=== PATIENT | female | born 1930 | race Caucasian/White ===

== ENCOUNTER 2016-05-15 02:14 | Inpatient (IN) | payer MEDICARE, OTHER ==
[2016-05-12 12:13] LABS: BASOPHILS 0.3 %; BASOPHILS ABSOLUTE 0.02 10/3/uL (0.0-0.16); EOSINOPHILS 3.5 %; EOSINOPHILS ABSOLUTE 0.22 10/3/uL (0.0-0.53); IMMATURE GRANULOCYTES 0.2 %; IMMATURE GRANULOCYTES ABSOLUTE 0.01 10/3/uL (0.0-0.11); LYMPHOCYTES 28.2 %; LYMPHOCYTES ABSOLUTE 1.75 10/3/uL (0.67-4.30); MEAN CORPUS HGB CONC 28.7 g/dL (32.0-36.0); MEAN CORPUSCULAR HEMOGLOB 27.1 pg (26.0-34.0); MEAN CORPUSCULAR VOLUME 94.6 fL (80-100); MEAN PLATELET VOLUME 11.2 fL (9.2-13.0); MONOCYTES 12.4 %; MONOCYTES ABSOLUTE 0.77 10/3/uL (0.21-1.20); NEUTROPHILS 55.4 %; NEUTROPHILS ABSOLUTE 3.44 10/3/uL (2.02-8.40); RBC DISTRIBUTION WIDTH 15.9 % (12.0-16.0); RED CELL COUNT 3.69 10/6/uL (4.0-5.6); WHITE BLOOD CELLS 6.2 10/3/uL (4.5-10.5)
[2016-05-12 12:14] LABS: HEMATOCRIT 34.9 % (36.0-48.0); PLATELET COUNT 173 10/3/uL (150-400)
[2016-05-12 12:15] LABS: MANUAL DIFF NO %
[2016-05-12 12:21] LABS: ASCORBIC ACID (UR NOT ORDER) 40 MG/DL (NEG); BILIRUBIN, URINE NEGATIVE (NEG); KETONE, URINE NEGATIVE (NEG)
[2016-05-12 12:25] LABS: A/G RATIO 0.9 (0.7-1.9); ALBUMIN 2.7 G/DL (3.5-5.0); CHLORIDE, SERUM 108 MMOL/L (96-112); CO2 (CARBON DIOXIDE) 29 MMOL/L (24-34); CREATININE 1.09 MG/DL (0.55-1.02); GFR AFRICAN AMERICAN 54 ML/MIN (>=60); GFR NON AFRICAN AMERICAN 47 ML/MIN (>=60); GLOBULIN 2.9 G/DL (2.5-4.1); POTASSIUM, SERUM 3.7 MMOL/L (3.5-5.3); SGOT(AST) 12 U/L (5-40); SGPT(ALT) 14 U/L (5-65); SODIUM, SERUM 145 MMOL/L (135-148); TOTAL BILIRUBIN 0.3 MG/DL (0-1.2); TOTAL PROTEIN 5.6 G/DL (6.0-8.5)
[2016-05-12 12:36] LABS: ALKALINE PHOSPHATASE 90 U/L (45-117); BUN (BLOOD UREA NITROGEN) 25 MG/DL (6-23); GLUCOSE, SERUM 163 MG/DL (60-99)
[2016-05-14 13:41] LABS: ASCORBIC ACID (UR NOT ORDER) NEG (NEG); BILIRUBIN, URINE NEGATIVE (NEG); KETONE, URINE NEGATIVE (NEG)
--- NOTE | ~2016-05-15 | HP ---
History And Physical [address] [place]. [address] NAME: TIFFANIE RAO : 32 STATUS : ADM IN [facility]#: [id number] AGE: 85 ADM/REG DATE : 05/15/16 MR#: [id number] REPORT SERV DATE: 05/15/16 DICTATED BY: GLENROY MUÑOZ DATE: 05/15/16 REPORT STATUS : Draft TRANSCRIBED BY: MODL DATE: 05/15/16 DATE OF ADMISSION: 05/15/2016 CHIEF COMPLAINT: Shortness of breath, chest pain, and left leg blood clot. HISTORY OF PRESENT ILLNESS: This is an 85-year-old lady who is transferred from [facility] for blood clots and pneumonia and possible PE. Unfortunately, patient is not a very good historian. The patient's family members are unavailable at this hour. This H and P is formulated from careful review of existing medical records as well as some of the history provided by patient and more history that was provided over the phone from [place] [facility] staff. The patient apparently developed left leg swelling sometime ago and the patient's PCP ordered lower extremity ultrasounds. The lower extremity ultrasound was apparently positive for DVT, and the patient was referred to the ER. When the patient arrived to the ER though the patient was complaining more of left-sided sharp chest pain, left-sided back pain, and shortness of breath. Chest x-ray was performed and it showed a right-sided middle lobe pneumonia. Otherwise, the patient was hemodynamically stable and initial lab work was all very benign. Transfer request was made for the patient to come to our facility for further evaluation and care. REVIEW OF SYSTEMS: The patient denies any fevers or chills. Also, 14-point review of systems reviewed and negative other than mentioned above. MEDICATIONS: The list is still pending at this time. ALLERGIES: PENICILLIN. PAST MEDICAL HISTORY: 1. COPD on 3 L of oxygen at home. 2. 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 3. Peripheral vascular disease. 4. Peptic ulcer disease. 5. Rheumatoid arthritis. 6. Chronic back pain. 7. Hypertension. 8. Depression and anxiety. PAST SURGICAL HISTORY: 1. ORIF of right hip. 2. Back surgeries. 3. Hiatal hernia repair. 4. Hysterectomy. 5. Appendectomy. 6. Hernia repairs. History And Physical [address] [place]. [address] NAME: TIFFANIE RAO : 32 STATUS : ADM IN [facility]#: [id number] AGE: 85 ADM/REG DATE : 05/15/16 MR#: [id number] REPORT SERV DATE: 05/15/16 DICTATED BY: GLENROY MUÑOZ DATE: 05/15/16 REPORT STATUS : Draft TRANSCRIBED BY: MODL DATE: 05/15/16 FAMILY HISTORY: Negative. SOCIAL HISTORY: The patient does not smoke, drink alcohol, or use any illicit drugs. The patient lives at home with her grandson's . PHYSICAL EXAMINATION: VITAL SIGNS: Blood pressure is 133/58, pulse 88, respiratory rate is 18, and saturating 95% on room air. NEUROLOGIC: The patient is alert and oriented x3 with no focal neurologic deficits. GENERAL: The patient is awake, does not appear to be in acute distress, and she is cooperative. NECK: No JVD. No lymphadenopathy. Normal thyroid. CHEST: No midline sternotomy scar and no tenderness to palpation. LUNGS: The patient has pretty significant wheezes across all lung jacome. Otherwise, the patient has normal respiratory effort on 3 L of oxygen per nasal cannula, which is her home dose. CARDIOVASCULAR: Regular rate and rhythm with no murmurs, rubs, or gallops, and PMI is nondisplaced. ABDOMEN: Soft, nontender with active bowel sounds and no organomegaly. EXTREMITIES: I really do not appreciate more edema on the left side compared to the right. The patient has normal distal pulses, and she does complain of some tightness and tenderness on her left calf. SKIN: Clean, dry, warm, and intact. LABORATORY DATA: Sodium is 144, potassium 4.7, chloride 107, BUN 25, creatinine 1.1, and glucose 119. LFTs are within normal limits. White blood cell count is 6.4, hemoglobin 9.8, and platelets 147. INR is 1.0. Chest x-ray apparently showed patchy infiltrates in right middle lung per reading. EKG showed a paced rhythm, and the ultrasound of the lower extremities apparently showed a left lower extremity DVT. ASSESSMENT: This is an 85-year-old lady with history of oxygen-dependent chronic obstructive pulmonary disease; third-degree AV block, on pacemaker; peripheral vascular disease; hypertension, amongst many other medical conditions, who was transferred from [place] with left lower extremity DVT and right-sided pneumonia. 1. Left lower extremity DVT. 2. Chest x-ray at [place] apparently showed right middle lung infiltrates. 3. Also possible PE as patient was complaining of left-sided pleuritic chest pain. 4. Chronic obstructive pulmonary disease exacerbation related to above. The patient is stable on 3 L of oxygen, but she is extremely wheezy. 5. Peripheral vascular disease. 6. Peptic ulcer disease. 7. Hypertension. 8. Depression and anxiety. PLAN: The plan is to admit the patient under telemetry monitoring. The patient will be given gentle IV fluid resuscitation. The patient will be started on heparin drip as well as History And Physical [address] [address] NAME: TIFFANIE RAO : 32 STATUS : ADM IN [facility]#: [id number] AGE: 85 ADM/REG DATE : 05/15/16 MR#: [id number] REPORT SERV DATE: 05/15/16 DICTATED BY: GLENROY MUÑOZ DATE: 05/15/16 REPORT STATUS : Draft TRANSCRIBED BY: KASHMIR DATE: 05/15/16 empiric antibiotics for community-acquired pneumonia coverage. I will go ahead and perform all infectious workup. Also, I will go ahead and check a CTA of the chest. Besides the heparin drip, the patient will be started on Coumadin for now, and as the patient's family members will be here in the morning, further discussion should be made regarding future anticoagulation options. I will also get case management involved in this case. Given extensive wheezes, I will also give her some steroids along with the antibiotics as mentioned above. For the rest of stable past medical conditions including peripheral vascular disease, hypertension, peptic ulcer disease, et al, I will continue home medications when the list becomes available. Standard DVT prophylaxis. The patient is full code at this time. YSC/KASHMIR Glenroy Muñoz MD / [id number] CC: Andrew Garcia MD
--- NOTE | ~2016-05-15 | DS ---
Discharge Summary [facility] [address] [place]. [address] NAME: TIFFANIE RAO : 32 STATUS : DIS IN PAT#: [id number] AGE: 85 ADM/REG DATE : 05/15/16 MR#: [id number] REPORT SERV DATE: 05/21/16 DICTATED BY: KAREN PEREZ DATE: 05/20/16 REPORT STATUS : Draft TRANSCRIBED BY: KASHMIR DATE: 05/20/16 ADMISSION DATE: 05/15/2016 DISCHARGE DATE: 05/20/2016 CONSULTATION: None. PROCEDURES: None. DISCHARGE DIAGNOSES: 1. Acute left lower extremity DVT. 2. Community-acquired pneumonia. 3. Chronic obstructive pulmonary disease exacerbation. 4. Hypertension. 5. Periphery peripheral vascular disease. 6. Obesity. 7. History of bipolar disorder. 8. Gastroesophageal reflux disease. 9. History of congestive heart failure. 10.History of arrhythmia, status post TPM for third-degree AV block. HISTORY OF PRESENT ILLNESS: For detailed HPI, please make reference to Dr. Glenroy Villagran's dictation on 05/15/2016. In summary, this is an 85-year-old female with medical history significant for hypertension, peripheral vascular disease, who was transferred from [facility] to [facility] on account of shortness of breath, chest pain, and left leg blood clot. It was noted that on presentation to [place] [facility] patient had a Doppler ultrasound that showed the presence of an acute DVT. Also, patient had a chest x-ray that shows a right side middle lobe pneumonia. Also of note, the patient was having some significant shortness of breath. There was concern for PE, and she was subsequently transferred here for further evaluation. HOSPITAL COURSE: 1. Acute left lower extremity DVT, confirmed by Doppler ultrasound at the outside hospital prior to presentation. The patient was started on heparin drip and was subsequently bridged with Coumadin. The patient's left extremity pain and swelling continued to improve throughout the course of this admission. At the time of discharge, the patient's INR became therapeutic and was within the therapeutic window. The patient was advised to continue warfarin 5 mg p.o. daily and continue to monitor INR closely at the acute rehab facility. Of note, the patient had a CTA during this admission and was negative for PE. 2. Community-acquired pneumonia prior to the [facility]. The patient had a chest x-ray that shows a right middle lobe infiltrate concerning for pneumonia. The patient was started on broad-spectrum antibiotics. These antibiotics were continued during the course of this admission. At the time of discharge, the patient had completed five days treatment for pneumonia. White cell count remained within normal range throughout the course of admission. Also, the patient's shortness of breath and Discharge Summary [address] [place]. [address] NAME: TIFFANIE RAO : 32 STATUS : DIS IN PAT#: [id number] AGE: 85 ADM/REG DATE : 05/15/16 MR#: [id number] REPORT SERV DATE: 05/21/16 DICTATED BY: KAREN PEREZ DATE: 05/20/16 REPORT STATUS : Draft TRANSCRIBED BY: KASHMIR DATE: 05/20/16 cough and pleuritic chest pain had significantly improved at the time of discharge. 3. COPD exacerbation. The patient was started on IV steroid and was subsequently transitioned to p.o. steroid. She received DuoNeb throughout the course of admission in addition to Spiriva and Advair. The patient's shortness of breath significantly improved. No further episode of wheezing. 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 4. Hypertension. The patient's blood pressure remained controlled throughout the course of this admission. IMAGING: CTA of the chest. Impression: 1. No pulmonary emboli. 2. Segmental atelectasis in the right lung base. 3. Diffuse emphysematous changes. DISCHARGE MEDICATIONS: 1. Prozac 20 mg p.o. daily. 2. Remeron 50 mg p.o. at bedtime. 3. Protonix 40 mg p.o. daily. 4. Potassium. 5. Lyrica 75 mg p.o. daily. 6. Seroquel 12.5 mg p.o. daily. 7. Seroquel 50 mg p.o. at bedtime. 8. Xanax 0.5 mg p.o. every 6 hours p.r.n. 9. Majestic 10/325, half pill p.o. daily. 10.Albuterol 2 puffs every 6 hours. 11.Lasix 80 mg p.o. daily. 12.DuoNeb. 13.Cyanocobalamin 1000 mg. 14.Ergocalciferol 50 mg p.o. weekly on Tuesdays. 15.Artificial Tears. DISCHARGE CONDITION: Stable. DISCHARGE DISPOSITION: To Subacute Rehab. DISCHARGE ACTIVITY: As tolerated. DISCHARGE FOLLOWUP: 1. The patient to continue to monitor INR with the primary care physician as well as at the [facility]. 2. The patient to follow up with primary care physician. A total of greater than 35 minutes was used to prepare this patient's discharge, reconcile medications, and advised the patient on discharge plans and followup. Discharge Summary [address] [address] NAME: TIFFANIE RAO : 32 STATUS : DIS IN [facility]#: [id number] AGE: 85 ADM/REG DATE : 05/15/16 MR#: [id number] REPORT SERV DATE: 05/21/16 DICTATED BY: KAREN PEREZ DATE: 05/20/16 REPORT STATUS : Draft TRANSCRIBED BY: KASHMIR DATE: 05/20/16 JAE/KASHMIR Karen Perez MD / [id number] CC: MD Fani León MD
[~2016-05-15 02:14] MED LIST: ACCUNE1 INH; ACCUNEB INH; ADVAIR250 INH; AMOXIL500 MG PO; ASAB PO; ATROVENTUD INH; AVINZA30 PO; BACDS PO; CALTRAT600 PO; CELEBREX2 PO; FLORASTOR250 MG PO; FOSAMAX70 MG PO; KLOR-CON 1010 MEQ PO; KLOR-CON M2020 MEQ PO; L20 PO; L40 PO; LORCET PO; LYRICA75 PO; NEUR300 PO; NORCO1 TA2 PO; NORCO1 TAB PO; OXYGEN NAS; PERCOCET1 TA5 PO; PLAVIX PO; PREDMILDOP OPH; PREDNISONE EYE DROPS; PRILOSEC40 MG PO; PROAIR HFA INH; PROVENTSOL INH; PROZAC PO; PULRESP.5 INH; SEROQUEL1C PO; SEROQUEL25 PO; SEROQUEL50 MG PO; SPIRO50 PO; STERAPRED DS10 MG PO; STERAPRED5 MG PO; VENTOLIN HFA INH; VIB100 PO; VITAMIN D1000 UNI1 PO; VITAMIN D31000 UNIT PO; VITC500 PO; VOLTAREN1 % TOP; XANAX1 MG PO; ZAROX2.5B PO; ZYPREXA7.5 MG PO; [UNRECOGNIZED DRUG - REMARK]
[2016-05-15] MEDS ORDERED: NORCO1 TAB PO ×2 (02:26→02:37)
[2016-05-15] MEDS ORDERED: X5 PO (02:27)
[2016-05-15] MEDS ORDERED: SEROQUEL50 MG PO ×2 (02:29)
[2016-05-15] MEDS ORDERED: REM15 PO (02:30)
[2016-05-15] MEDS ORDERED: ANADS PO (02:30)
[2016-05-15] MEDS ORDERED: LYRICA75 PO (02:31)
[2016-05-15] MEDS ORDERED: L80 PO (02:31)
[2016-05-15] MEDS ORDERED: KDUR20 PO (02:31)
[2016-05-15] MEDS ORDERED: PROZAC PO (02:32)
[2016-05-15] MEDS ORDERED: PROTONIX PO (02:32)
[2016-05-15] MEDS ORDERED: PROAIR HFA INH (02:33)
[2016-05-15 05:34] LABS: BASOPHILS 0.2 %; BASOPHILS ABSOLUTE 0.02 10/3/uL (0.0-0.16); EOSINOPHILS 2.8 %; EOSINOPHILS ABSOLUTE 0.26 10/3/uL (0.0-0.53); HEMATOCRIT 34.6 % (36.0-48.0); HEMOGLOBIN 10.4 g/dL (12.0-16.0); IMMATURE GRANULOCYTES 0.2 %; IMMATURE GRANULOCYTES ABSOLUTE 0.02 10/3/uL (0.0-0.11); LYMPHOCYTES ABSOLUTE 1.11 10/3/uL (0.67-4.30); MANUAL DIFF NO %; MEAN CORPUS HGB CONC 30.1 g/dL (32.0-36.0); MEAN CORPUSCULAR HEMOGLOB 27.7 pg (26.0-34.0); MEAN CORPUSCULAR VOLUME 92.3 fL (80-100); MEAN PLATELET VOLUME 10.5 fL (9.2-13.0); MONOCYTES 9.9 %; MONOCYTES ABSOLUTE 0.91 10/3/uL (0.21-1.20); NEUTROPHILS 74.9 %; PLATELET COUNT 172 10/3/uL (150-400); RBC DISTRIBUTION WIDTH 15.9 % (12.0-16.0); RED CELL COUNT 3.75 10/6/uL (4.0-5.6); WHITE BLOOD CELLS 9.2 10/3/uL (4.5-10.5)
[2016-05-15 05:40] LABS: BUN (BLOOD UREA NITROGEN) 25 MG/DL (6-23); CHLORIDE, SERUM 109 MMOL/L (96-112); CO2 (CARBON DIOXIDE) 30 MMOL/L (24-34); CREATININE 1.15 MG/DL (0.55-1.02); GFR AFRICAN AMERICAN 51 ML/MIN (>=60); GFR NON AFRICAN AMERICAN 44 ML/MIN (>=60); GLUCOSE, SERUM 116 MG/DL (60-99); POTASSIUM, SERUM 4.7 MMOL/L (3.5-5.3); SODIUM, SERUM 146 MMOL/L (135-148)
[2016-05-15 06:44] LABS: PROCALCITONIN <0.05 ng/mL (<0.5)
[2016-05-15] MEDS ORDERED: REFRESH OPH (17:10)
[2016-05-15] MEDS ORDERED: B121000P IM (17:10)
[2016-05-15] MEDS ORDERED: DUONEB INH (17:10)
[2016-05-15] MEDS ORDERED: VITD PO (17:10)
[2016-05-15 17:53] LABS: INTERNATIONAL NORMAL RATI 1.4 UNITS (-)
[2016-05-15 17:54] LABS: PARTIAL THROMBO TIME 74.1 SEC (22.5-37.2)
[2016-05-15 18:07] LABS: PROTIME (NOT ORD) 16.6 SEC (12.0-14.5)
[2016-05-16 07:56] LABS: INTERNATIONAL NORMAL RATI 2.1 UNITS (-)
[2016-05-16 07:57] LABS: PARTIAL THROMBO TIME 95.7 SEC (22.5-37.2)
[2016-05-16 08:05] LABS: PROTIME (NOT ORD) 23.2 SEC (12.0-14.5)
[2016-05-17 05:03] LABS: BASOPHILS 0 %; EOSINOPHILS 0 %; IMMATURE GRANULOCYTES 0.4 %; IMMATURE GRANULOCYTES ABSOLUTE 0.02 10/3/uL (0.0-0.11); LYMPHOCYTES 16.5 %; LYMPHOCYTES ABSOLUTE 0.82 10/3/uL (0.67-4.30); MEAN CORPUS HGB CONC 30.1 g/dL (32.0-36.0); MEAN CORPUSCULAR HEMOGLOB 27.4 pg (26.0-34.0); MEAN CORPUSCULAR VOLUME 91.1 fL (80-100); MONOCYTES 8.7 %; MONOCYTES ABSOLUTE 0.43 10/3/uL (0.21-1.20); NEUTROPHILS 74.4 %; PLATELET COUNT 146 10/3/uL (150-400); RBC DISTRIBUTION WIDTH 16.2 % (12.0-16.0); RED CELL COUNT 3.03 10/6/uL (4.0-5.6)
[2016-05-17 05:04] LABS: HEMATOCRIT 27.6 % (36.0-48.0); HEMOGLOBIN 8.3 g/dL (12.0-16.0)
[2016-05-17 05:05] LABS: MANUAL DIFF NO %
[2016-05-17 05:19] LABS: PROTIME (NOT ORD) 30.6 SEC (12.0-14.5)
[2016-05-17 05:21] LABS: CALCIUM, SERUM 8.3 MG/DL (8.5-10.4); CHLORIDE, SERUM 110 MMOL/L (96-112); CO2 (CARBON DIOXIDE) 29 MMOL/L (24-34); POTASSIUM, SERUM 4.1 MMOL/L (3.5-5.3); SGOT(AST) 10 U/L (5-40); SGPT(ALT) 13 U/L (5-65); SODIUM, SERUM 146 MMOL/L (135-148); TOTAL BILIRUBIN 0.1 MG/DL (0-1.2)
[2016-05-17 05:22] LABS: A/G RATIO 0.7 (0.7-1.9); ALBUMIN 2.1 G/DL (3.5-5.0); ALKALINE PHOSPHATASE 63 U/L (45-117); BUN (BLOOD UREA NITROGEN) 10 MG/DL (6-23); CREATININE 0.56 MG/DL (0.55-1.02); GFR AFRICAN AMERICAN 99 ML/MIN (>=60); GFR NON AFRICAN AMERICAN 86 ML/MIN (>=60); GLOBULIN 2.9 G/DL (2.5-4.1); GLUCOSE, SERUM 158 MG/DL (60-99)
[2016-05-18 07:05] LABS: BASOPHILS 0 %; EOSINOPHILS 0 %; HEMATOCRIT 29.1 % (36.0-48.0); HEMOGLOBIN 8.7 g/dL (12.0-16.0); IMMATURE GRANULOCYTES 0.4 %; IMMATURE GRANULOCYTES ABSOLUTE 0.02 10/3/uL (0.0-0.11); LYMPHOCYTES 13.4 %; LYMPHOCYTES ABSOLUTE 0.72 10/3/uL (0.67-4.30); MEAN CORPUS HGB CONC 29.9 g/dL (32.0-36.0); MEAN CORPUSCULAR HEMOGLOB 26.9 pg (26.0-34.0); MEAN CORPUSCULAR VOLUME 90.1 fL (80-100); MEAN PLATELET VOLUME 10.5 fL (9.2-13.0); MONOCYTES 5.8 %; MONOCYTES ABSOLUTE 0.31 10/3/uL (0.21-1.20); NEUTROPHILS 80.4 %; NEUTROPHILS ABSOLUTE 4.31 10/3/uL (2.02-8.40); PLATELET COUNT 166 10/3/uL (150-400); RBC DISTRIBUTION WIDTH 16.6 % (12.0-16.0); RED CELL COUNT 3.23 10/6/uL (4.0-5.6); WHITE BLOOD CELLS 5.4 10/3/uL (4.5-10.5)
[2016-05-18 07:06] LABS: MANUAL DIFF NO %
[2016-05-18 07:11] LABS: INTERNATIONAL NORMAL RATI 2.1 UNITS (-); PROTIME (NOT ORD) 23.1 SEC (12.0-14.5)
[2016-05-18 07:44] LABS: A/G RATIO 0.8 (0.7-1.9); ALBUMIN 2.4 G/DL (3.5-5.0); ALKALINE PHOSPHATASE 62 U/L (45-117); BUN (BLOOD UREA NITROGEN) 8 MG/DL (6-23); CALCIUM, SERUM 8.5 MG/DL (8.5-10.4); CHLORIDE, SERUM 110 MMOL/L (96-112); CO2 (CARBON DIOXIDE) 33 MMOL/L (24-34); CREATININE 0.48 MG/DL (0.55-1.02); GFR AFRICAN AMERICAN 104 ML/MIN (>=60); GFR NON AFRICAN AMERICAN 90 ML/MIN (>=60); POTASSIUM, SERUM 4.1 MMOL/L (3.5-5.3); SGOT(AST) 21 U/L (5-40); SGPT(ALT) 21 U/L (5-65); SODIUM, SERUM 148 MMOL/L (135-148); TOTAL BILIRUBIN 0.1 MG/DL (0-1.2); TOTAL PROTEIN 5.4 G/DL (6.0-8.5)
[2016-05-18 07:45] LABS: GLUCOSE, SERUM 116 MG/DL (60-99)
[2016-05-19 06:57] LABS: BASOPHILS 0 %; EOSINOPHILS 0 %; HEMATOCRIT 30.1 % (36.0-48.0); HEMOGLOBIN 9.2 g/dL (12.0-16.0); IMMATURE GRANULOCYTES 0.5 %; IMMATURE GRANULOCYTES ABSOLUTE 0.04 10/3/uL (0.0-0.11); LYMPHOCYTES 13.6 %; LYMPHOCYTES ABSOLUTE 1.04 10/3/uL (0.67-4.30); MEAN CORPUS HGB CONC 30.6 g/dL (32.0-36.0); MEAN CORPUSCULAR HEMOGLOB 27.7 pg (26.0-34.0); MEAN CORPUSCULAR VOLUME 90.7 fL (80-100); MEAN PLATELET VOLUME 10.9 fL (9.2-13.0); MONOCYTES 7.9 %; NEUTROPHILS ABSOLUTE 5.96 10/3/uL (2.02-8.40); PLATELET COUNT 173 10/3/uL (150-400); RBC DISTRIBUTION WIDTH 16.7 % (12.0-16.0); RED CELL COUNT 3.32 10/6/uL (4.0-5.6)
[2016-05-19 06:59] LABS: MANUAL DIFF NO %; WHITE BLOOD CELLS 7.6 10/3/uL (4.5-10.5)
[2016-05-19 07:02] LABS: INTERNATIONAL NORMAL RATI 1.7 UNITS (-)
[2016-05-19 07:04] LABS: PROTIME (NOT ORD) 19.4 SEC (12.0-14.5)
[2016-05-19 07:10] LABS: ALBUMIN 2.5 G/DL (3.5-5.0); BUN (BLOOD UREA NITROGEN) 14 MG/DL (6-23); CALCIUM, SERUM 8.2 MG/DL (8.5-10.4); CHLORIDE, SERUM 106 MMOL/L (96-112); CO2 (CARBON DIOXIDE) 33 MMOL/L (24-34); CREATININE 0.63 MG/DL (0.55-1.02); GFR AFRICAN AMERICAN 95 ML/MIN (>=60); GFR NON AFRICAN AMERICAN 82 ML/MIN (>=60); GLUCOSE, SERUM 119 MG/DL (60-99); PHOSPHORUS, SERUM 3.7 MG/DL (2.5-4.5); POTASSIUM, SERUM 4.2 MMOL/L (3.5-5.3); SODIUM, SERUM 147 MMOL/L (135-148)
[2016-05-20 07:16] LABS: BASOPHILS 0 %; EOSINOPHILS 0.2 %; EOSINOPHILS ABSOLUTE 0.02 10/3/uL (0.0-0.53); HEMATOCRIT 30.3 % (36.0-48.0); HEMOGLOBIN 9.1 g/dL (12.0-16.0); IMMATURE GRANULOCYTES 0.3 %; IMMATURE GRANULOCYTES ABSOLUTE 0.03 10/3/uL (0.0-0.11); LYMPHOCYTES 12.3 %; LYMPHOCYTES ABSOLUTE 1.07 10/3/uL (0.67-4.30); MEAN CORPUSCULAR HEMOGLOB 27.6 pg (26.0-34.0); MEAN CORPUSCULAR VOLUME 91.8 fL (80-100); MEAN PLATELET VOLUME 10.2 fL (9.2-13.0); MONOCYTES 11.6 %; MONOCYTES ABSOLUTE 1.01 10/3/uL (0.21-1.20); NEUTROPHILS 75.6 %; NEUTROPHILS ABSOLUTE 6.55 10/3/uL (2.02-8.40); PLATELET COUNT 162 10/3/uL (150-400); RBC DISTRIBUTION WIDTH 16.3 % (12.0-16.0); WHITE BLOOD CELLS 8.7 10/3/uL (4.5-10.5)
[2016-05-20 07:18] LABS: INTERNATIONAL NORMAL RATI 1.9 UNITS (-); MANUAL DIFF NO %; PROTIME (NOT ORD) 21.8 SEC (12.0-14.5)
[2016-05-20 07:26] LABS: ALBUMIN 2.5 G/DL (3.5-5.0); BUN (BLOOD UREA NITROGEN) 17 MG/DL (6-23); CALCIUM, SERUM 8.4 MG/DL (8.5-10.4); CHLORIDE, SERUM 105 MMOL/L (96-112); CO2 (CARBON DIOXIDE) 33 MMOL/L (24-34); CREATININE 0.65 MG/DL (0.55-1.02); GFR AFRICAN AMERICAN 94 ML/MIN (>=60); GFR NON AFRICAN AMERICAN 82 ML/MIN (>=60); GLUCOSE, SERUM 105 MG/DL (60-99); PHOSPHORUS, SERUM 3.8 MG/DL (2.5-4.5); POTASSIUM, SERUM 4.2 MMOL/L (3.5-5.3); SODIUM, SERUM 145 MMOL/L (135-148)
[2016-09-20] MEDS ORDERED: X5 PO ×2 (17:27→17:37)
[2016-09-20] MEDS ORDERED: DURA25 TOP (17:28)
[2016-09-20] MEDS ORDERED: B121000P IM (17:28)
[2016-09-20] MEDS ORDERED: FERROUS SULF325 M1 PO (17:29)
[2016-09-20] MEDS ORDERED: L80 PO (17:30)
[2016-09-20] MEDS ORDERED: PROZAC PO (17:30)
[2016-09-20] MEDS ORDERED: NORCO1 TA1 PO ×2 (17:31→17:37)
[2016-09-20] MEDS ORDERED: LATUDA20 MG PO (17:33)
[2016-09-20] MEDS ORDERED: KLOR-CON 1010 MEQ PO (17:34)
[2016-09-20] MEDS ORDERED: REM15 PO (17:34)
[2016-09-20] MEDS ORDERED: PROTONIX PO (17:34)
[2016-09-20] MEDS ORDERED: LYRICA75 PO (17:34)
[2016-09-20] MEDS ORDERED: SENTAB PO (17:35)
[2016-09-20] MEDS ORDERED: VITD PO (17:35)
[2016-09-20] MEDS ORDERED: XARELTO20 MG PO (17:36)
[2016-09-20] MEDS ORDERED: REFRESH OPH (17:37)
[2016-09-20] MEDS ORDERED: PROAIR HFA INH (17:38)
[2016-09-20] MEDS ORDERED: DUONEB INH (17:38)
[2016-09-20] MEDS ORDERED: ZOFRAN4 PO (17:38)
[2016-09-25] MEDS ORDERED: LOP25 PO (11:44)
[2016-11-09] MEDS ORDERED: X5 PO (17:22)
[2016-11-09] MEDS ORDERED: ANOROELLIPTA INH (17:24)
[2016-11-09] MEDS ORDERED: PULRESP.5 INH (17:25)
[2016-11-09] MEDS ORDERED: B121000P IM (17:26)
[2016-11-09] MEDS ORDERED: DURA25 TOP (17:26)
[2016-11-09] MEDS ORDERED: FERROUS SULF325 M1 PO (17:27)
[2016-11-09] MEDS ORDERED: PROZAC PO (17:29)
[2016-11-09] MEDS ORDERED: L80 PO (17:29)
[2016-11-09] MEDS ORDERED: NORCO1 TAB PO (17:31)
[2016-11-09] MEDS ORDERED: LATUDA20 MG PO (17:31)
[2016-11-09] MEDS ORDERED: LYRICA75 PO (17:34)
[2016-11-09] MEDS ORDERED: LOP25 PO (17:34)
[2016-11-09] MEDS ORDERED: REM15 PO (17:36)
[2016-11-09] MEDS ORDERED: PROTONIX PO (17:43)
[2016-11-09] MEDS ORDERED: KLOR-CON M1010 MEQ PO (17:44)
[2016-11-09] MEDS ORDERED: SENTAB PO (17:45)
[2016-11-09] MEDS ORDERED: VITD PO (17:46)
[2016-11-09] MEDS ORDERED: XARELTO20 MG PO (17:47)
[2016-11-09] MEDS ORDERED: DUONEB INH (17:48)
== END 2016-05-20 11:42 | DRG 299 ==
LOC: 2SO 02:14
PROVIDERS: Hospitalist; Internal Medicine Geriatric Medicine; Registered Nurse
DX: I82.4Z2 Acute embolism and thrombosis of unspecified deep veins of left distal lower extremity (principal); J18.9 Pneumonia, unspecified organism; J44.0 Chronic obstructive pulmonary disease with (acute) lower respiratory infection; Z99.81 Dependence on supplemental oxygen; J44.9 Chronic obstructive pulmonary disease, unspecified; I73.9 Peripheral vascular disease, unspecified; M06.9 Rheumatoid arthritis, unspecified; M54.5 Low back pain; F41.9 Anxiety disorder, unspecified; E66.9 Obesity, unspecified; Z68.30 Body mass index [BMI] 30.0-30.9, adult; I10 Essential (primary) hypertension; F31.9 Bipolar disorder, unspecified; Z88.0 Allergy status to penicillin; Z95.0 Presence of cardiac pacemaker; Z98.890 Other specified postprocedural states; Z87.11 Personal history of peptic ulcer disease
CPT/HCPCS: 71010; 71275; 80048; 80053; 80069; 81001; 83735; 83880; 84145; 85025; 85610; 85730; 87040; 87086; 94640; 97110-GP; 97116-GP; 97162-GP; 97530-GP; A9270-GY; G8978-CK-GP; G8979-CI-GP; J0456; J2920; Q9967